=== PATIENT | male | born 1975 | race Caucasian/White ===

== ENCOUNTER 2019-12-13 13:57 | Outpatient (CLI) | payer BC, SELFPAY ==
--- NOTE | 2019-12-13 14:04 | XRR_ITS ---
PROCEDURE INFORMATION: Exam: XR Lumbosacral Spine, 2 or 3 Views Exam date and time: 12/13/2019 2:05 PM Age: 43 years old Clinical indication: Low back pain; Prior surgery; Surgery date: 6+ months; Additional info: Chronic low back pain TECHNIQUE: Imaging protocol: XR of the lumbosacral spine, 2 or 3 views. COMPARISON: MRI Lumbar Spine w/o [id number] 09/09/2014 8:09 AM FINDINGS: Vertebrae: There is mild osteoarthritis with narrowing of the intervertebral disc spaces several levels and bone spurs. No acute fracture. Normal alignment. Soft tissues: Normal. XR/XR lumbar spine 2-3V* [id number] IMPRESSION: Unremarkable radiograph.
== END 2019-12-13 13:58 | disposition home or self-care (01) ==
LOC: RAD 13:59
PROVIDERS: Family Provider Family Medicine; PCP Family Medicine; Visit Provider Family Medicine
DX: M54.5 Low back pain (principal); G89.29 Other chronic pain
CPT/HCPCS: 72100; 80053

== ENCOUNTER → 2021-09-28 11:33 | Outpatient (BNVA) | payer BC, SELFPAY | PROVIDERS: Family Provider Family Medicine; PCP Family Medicine; Visit Provider Nurse Practitioner Family | DX: Z20.822 Contact with and (suspected) exposure to COVID-19 (principal) | CPT/HCPCS: 87426; 87635 ==

== ENCOUNTER 2022-02-27 10:40 | Emergency (ER) | payer BC, SELFPAY ==
[2022-02-27 11:27] VITALS: BP 170/94; PULSE 73; RESP 15; TEMP 36.3; O2SAT 97; BMI 26.9
--- NOTE | 2022-02-27 11:34 | W.ED.NAVMDI ---
HPI - Nausea/Vomiting/Diarrhea General: Chief complaint: Nausea/Vomiting/Diarrhea Stated complaint: Throwing up, cant keep anything down Time Seen by Provider: 02/27/22 11:34 History of Present Illness: Mr. Solomon is a 46-year-old gentleman with significant past medical history of stomach ulcers who presents to the emergency department due to nausea vomiting. He reports symptom onset 2 days ago was subacute. He underwent tooth extraction Friday afternoon however no inhaled anesthetic or parent Sumanth anesthetic was given. That evening he developed multiple episodes of nausea and vomiting. He only endorses mild abdominal cramping with this and denies changes in stool though has had decreased urine output secondary to poor p.o. intake. Since that time he endorses watery vomit at least 3 times per hour. Intensity symptoms is moderate to severe. Course has persisted. No other specific changes in health, exacerbating, or alleviating factors identified. Onset (ago): day(s) Description of vomiting: watery Associated nausea: Yes Location of pain: Diffuse Severity: mild Quality: cramping Exacerbating factors: eating Associated symtoms: Reports nausea Review of Systems General: Reports: 10 or more systems reviewed and unremarkable except in HPI and below GI: Reports: nausea PFSH ED PFSH: Medical History Chronic GERD Chronic low back pain Elevated LFTs Surgical History History of back surgery S/P appendectomy Family History Other CAD (coronary artery disease) Diabetes Social History Smoking and tobacco status: never smoked Alcohol intake: current Alcohol intake frequency: few times a month Physical Exam Const: COMMON NORMALS: alert GENERAL APPEARANCE: cooperative, well developed and ill appearing (Mildly) HENMT: COMMON NORMALS: normocephalic and atraumatic HEAD & SCALP: normocephalic and atraumatic Eye: COMMON NORMALS: conjunctivae normal CONJUNCTIVA: Yes conjunctivae normal SCLERA: sclerae normal Neck/C-Spine: COMMON NORMALS: supple GENERAL: Yes trachea midline Resp: COMMON NORMALS: clear to auscultation bilaterally EFFORT & INSPECTION: Yes able to speak in complete sentences AUSCULTATION: clear to auscultation bilaterally Cardio: COMMON NORMALS: regular rate and regular rhythm RATE: regular rate RHYTHM: regular rhythm GI: COMMON NORMALS: Soft to palpation PALPATION: Yes Soft to palpation and No Tenderness to palpation present (GI) PERCUSSION: normal to percussion Extremity: GENERAL: Yes normal exam except as noted and No edema Neuro: COMMON NORMALS: moves all extremities SENSORIUM/ORIENTATION: Yes alert and No Orientation impaired Psych: COMMON NORMALS: mental status grossly normal and Normal thought process present THOUGHT PROCESS: Normal thought process present Course ED course: - Patient was seen and evaluated by me at bedside - Patient placed on cardiac monitors, IV access obtained - Initial evaluation notable for exam as above. Actively vomiting. - Labs personally interpreted by me - Fluids and symptom treatment ordered - Labs notable for mild leukocytosis. Metabolic panel consistent with dehydration. Potassium replenishment ordered. There is transaminitis and mild elevation of T bili however no right upper quadrant tenderness or history of biliary colic. Patient does endorse alcohol use which likely explains findings. - Imaging notable for no acute finding to explain symptoms. There is hepatomegaly with diffuse fatty infiltration. - Patient counseled on findings and alcohol use. - Upon serial reexamination after treatment the patient was improved - Based on patient history, evaluation, and testing as interpreted the most likely cause of the patient's condition is unspecified nausea vomiting resulting in dehydration and hypokalemia that was improved with treatment - The results of ED evaluation were discussed with the patient including prescriptions and/or symptomatic cares (if applicable) including appropriate and responsible use, followup plan, and return precautions. The patient verbalized understanding and felt safe for discharge. - Patient discharged in satisfactory condition. Note: Click bubbles or prepopulated catherine in note writing are used for assistance with data collection and billing and are inherently more limited than narrative and other text portions of this note. Please use narrative for additional clinical history and defer to narrative/free test for any case of contradictory information. If information appears in only free text or click bubble it should be considered present or absent as reported. Please contact note sheet writer for clarifications of clinical information or contradictory information. MDM is a brief summary, contradictory or erroneous seeming information should be clarified and full note should be reviewed. Vital Signs: Vital signs: Vital Signs Temperature 97.4 F L 02/27/22 11:27 Pulse Rate 82 02/27/22 16:39 Respiratory Rate 20 H 02/27/22 16:39 Blood Pressure 160/99 02/27/22 16:39 Pulse Oximetry 99 02/27/22 16:39 MDM - Nausea/Vomiting/Diarrhea Medical Decision Making 46-year-old gentleman presenting with nausea and vomiting. Labs consistent with mild dehydration and symptoms improved with treatment. CT without obvious cause of patient's symptoms. Satisfactory for outpatient management. Medical Records I reviewed the patient's medical records. Lab Data I reviewed the patient's lab results. : 02/27/22 12:30 02/27/22 12:30 Radiology Impressions Abdomen/Pelvis CT 02/27/22 13:01 IMPRESSION: 1. No acute findings in the abdomen or pelvis. 2. Hepatomegaly with diffuse fatty infiltration. 3. Sigmoid diverticulosis. No evidence of acute diverticulitis. 4. Small fat-containing umbilical hernia. 5. Prior appendectomy. Laboratory Results WBC 10.8 10^3/uL (4.0-10.0) H 02/27/22 12:30 RBC 4.81 10^6/uL (4.1-5.3) 02/27/22 12:30 Hgb 15.3 g/dL (11.7-16.6) 02/27/22 12:30 Hct 44.5 % (42.0-52.0) 02/27/22 12:30 MCV 92.5 fl (80-94) 02/27/22 12:30 MCH 31.8 pg (28.0-34.0) 02/27/22 12:30 MCHC 34.4 g/dL (30.0-36.0) 02/27/22 12:30 RDW 12.0 % (12.1-15.1) L 02/27/22 12:30 Plt Count 212 10^3/cmm (130-400) 02/27/22 12:30 MPV 10.1 fL (7.4-10.4) 02/27/22 12:30 Neut % (Auto) 81.5 % 02/27/22 12:30 Lymph % (Auto) 6.5 % 02/27/22 12:30 [place] % (Auto) 11.2 % 02/27/22 12:30 Eos % (Auto) 0.0 % 02/27/22 12:30 Baso % (Auto) 0.2 % 02/27/22 12:30 Neut # (Auto) 8.78 10^3/uL (1.8-7.7) H 02/27/22 12:30 Lymph # (Auto) 0.7 10^3/uL (0.8-4.8) L 02/27/22 12:30 [place] # (Auto) 1.2 10^3/uL (0.2-0.9) H 02/27/22 12:30 Eos # (Auto) 0.0 10^3/uL (0.0-0.8) 02/27/22 12:30 Baso # (Auto) 0.0 10^3/uL (0.0-0.1) 02/27/22 12:30 Nucleated RBC % (auto) 0 % 02/27/22 12:30 Nucleated RBCs # 0.0 /100WBC 02/27/22 12:30 Sodium 136 mmol/L (136-145) 02/27/22 12:30 Potassium 3.3 mmol/L (3.5-5.1) L 02/27/22 12:30 Chloride 88 mmol/L (98-107) L 02/27/22 12:30 Carbon Dioxide 28 mmol/L (22-29) 02/27/22 12:30 Anion Gap 23.3 (5-19) H 02/27/22 12:30 BUN 16 mg/dL (6-20) 02/27/22 12:30 Creatinine 0.7 mg/dL (0.7-1.2) 02/27/22 12:30 GFR Calculation 122.5 mL/min (90-130) 02/27/22 12:30 Glucose 115 mg/dL (65-115) 02/27/22 12:30 Calculated Osmolality 284 mOsm/kg (285-295) L 02/27/22 12:30 Calcium 9.6 mg/dL (8.5-10.5) 02/27/22 12:30 Total Bilirubin 1.4 mg/dL (0.15-1.2) H 02/27/22 12:30 AST 105 U/L (0-40) H 02/27/22 12:30 ALT 128 U/L (0-41) H 02/27/22 12:30 Alkaline Phosphatase 68 IU/L (40-130) 02/27/22 12:30 Total Protein 7.1 g/dL (6.6-8.7) 02/27/22 12:30 Albumin 4.9 g/dL (3.5-5.2) 02/27/22 12:30 Globulin 2.2 g/dL (1.3-4.6) 02/27/22 12:30 Lipase 49 U/L (13-60) 02/27/22 12:30 Urine Color [place] (Yellow) 02/27/22 12:30 Urine Appearance Clear (CLEAR) 02/27/22 12:30 Urine pH 5 (5-7) 02/27/22 12:30 Ur Specific [place] 1.020 (1.005-1.030) 02/27/22 12:30 Urine Protein 3+ (Negative) H 02/27/22 12:30 Urine Glucose (UA) Norm (Normal) 02/27/22 12:30 Urine Ketones 3+ (Negative) H 02/27/22 12:30 Urine Blood Neg (Negative) 02/27/22 12:30 Urine Nitrate Negative (Negative) 02/27/22 12:30 Urine Bilirubin 1+ (Negative) H 02/27/22 12:30 Urine Urobilinogen 1 mg/dL (Negative) H 02/27/22 12:30 Ur Leukocyte Esterase Trace (Negative) H 02/27/22 12:30 Urine RBC 0-4 /hpf (0-2) H 02/27/22 12:30 Urine WBC 0-4 /hpf (0-5) H 02/27/22 12:30 Ur Squamous Epith Cells 0-4 /hpf (0-5) H 02/27/22 12:30 Amorphous Sediment Not Reportable 02/27/22 12:30 Urine Bacteria Trace /hpf (NONE) 02/27/22 12:30 Urine Mucus 3+ /hpf 02/27/22 12:30 Discharge Plan Discharge Patient Disposition: Home Clinical Impression: Elevated LFTs, Dehydration, Nausea & vomiting, Hypokalemia, Hepatomegaly, Alcohol induced fatty liver Condition: Stable Prescriptions: New ondansetron 4 mg tablet,disintegrating 4 mg PO Q8H PRN (Reason: nausea and vomiting) Qty: 15 0RF Protonix 40 mg tablet,delayed release (DR/EC) 40 mg PO BID 10 Days Qty: 20 0RF No Action ketorolac 10 mg tablet 10 mg PO TID PRN (Reason: pain) 5 Days Qty: 15 0RF amoxicillin-pot clavulanate [Augmentin] 875-125 mg tablet 1 tab PO Q12H 10 Days Qty: 20 0RF amoxicillin 500 mg capsule 500 mg PO TID 0RF Rx Instructions: till gone hydrocodone-acetaminophen 5-325 mg tablet 1 tab PO Q4H PRN (Reason: Pain) 0RF Discharge Orders: Discharge ED (Routine); Ordered 02/27/22 Ordered By: Johnathon Jaime Referrals: Neeta Richmond MD [Staff Physician] - Sofya Coleman DO [Primary Care Provider] - Discharge Diet: Advance as tolerated and Clear Liquid Discharge Activity: Increase activity as tolerated Patient Instructions: Dehydration (ED), Acute Nausea and Vomiting (ED) Activity Restrictions/Additional Instructions: Thank you for visiting the emergency department. You were seen and evaluated for vomiting. The exact cause of your symptoms is unclear. You were found to be dehydrated and we are pleased that you improved with treatment. Please establish with a primary care provider. Please return to the emergency department for worsening symptoms or anything else that you are concerned about and feel needs emergency department evaluation. Coding Level of Care Code ED Public Health Inspector for Yany Espinosa Exam Comprehensive
[2022-02-27] MEDS: sodium chloride 0.9% 1,000 ML 999 ML IV ×2 (12:28→13:32)
[2022-02-27] MEDS: ondansetron 2 mg/ML SDV 2 mL 4 MG IVP (12:28)
[2022-02-27 12:36] LABS: Basophils % 0.2 %; Hematocrit 44.5 % (42.0-52.0); Hemoglobin 15.3 g/dL (11.7-16.6); Lymphocytes # 0.7 10^3/uL (0.8-4.8); Lymphocytes % 6.5 %; Mean Corpuscular HGB Conc 34.4 g/dL (30.0-36.0); Mean Corpuscular Hemoglobin 31.8 pg (28.0-34.0); Mean Corpuscular Volume 92.5 fl (80-94); Mean Platelet Volume 10.1 fL (7.4-10.4); Monocytes # 1.2 10^3/uL (0.2-0.9); Monocytes % 11.2 %; Neutrophils # 8.78 10^3/uL (1.8-7.7); Neutrophils % 81.5 %; Nucleated Red Blood Cells % 0 %; Platelet Count 212 10^3/cmm (130-400); Red Blood Count 4.81 10^6/uL (4.1-5.3); White Blood Count 10.8 10^3/uL (4.0-10.0)
[2022-02-27 12:57] LABS: Alanine Aminotransferase 128 U/L (0-41); Albumin Level 4.9 g/dL (3.5-5.2); Alkaline Phosphatase 68 IU/L (40-130); Anion Gap 23.3 (5-19); Aspartate Amino Transferase 105 U/L (0-40); Blood Urea Nitrogen 16 mg/dL (6-20); Calcium 9.6 mg/dL (8.5-10.5); Carbon Dioxide 28 mmol/L (22-29); Chloride 88 mmol/L (98-107); Globulin 2.2 g/dL (1.3-4.6); Glomerular Filtration Rate 122.5 mL/min (90-130); Glucose 115 mg/dL (65-115); Lipase 49 U/L (13-60); Osmolality Calculated 284 mOsm/kg (285-295); Potassium 3.3 mmol/L (3.5-5.1); Sodium 136 mmol/L (136-145); Total Bilirubin 1.4 mg/dL (0.15-1.2); Total Protein 7.1 g/dL (6.6-8.7)
--- NOTE | 2022-02-27 13:01 | CT_ITS ---
WS: [id number] CT ABDOMEN PELVIS TECHNIQUE: Contrast-enhanced CT of the abdomen and pelvis with coronal and sagittal reformatted image s. CLINICAL INFORMATION: n/v COMPARISON: DLP: 1652.[address] scans at [facility] use at least one of these dose optimization techniques: automated e xposure control; mA and/or kV adjustment per patient size (includes targeted exams where dose is matc hed to clinical indication); or iterative reconstruction. FINDINGS: Hepatomegaly with Diffuse fatty infiltration of the liver. Normal portal vein and splenic vein. Alia l spleen. Small esophageal hiatal hernia. Lung bases are well aerated. Normal spleen. Adrenal glands are normal. Normal renal parenchymal enhancement. No hydronephrosis. Normal caliber abdominal aorta. Tiny fat-containing umbilical hernia. Sigmoid diverticulosis. No evidence of acute diverticulitis. No evidence of high-grade small or large bowel obstruction. Prior appendectomy. No free fluid in the abdomen or pelvis. No abdominal or pelvi c lymphadenopathy.40 CT/CT abdomen pelvis w con* [id number] IMPRESSION: 1. No acute findings in the abdomen or pelvis. 2. Hepatomegaly with diffuse fatty infiltration. 3. Sigmoid diverticulosis. No evidence of acute diverticulitis. 4. Small fat-containing umbilical hernia. 5. Prior appendectomy.
[2022-02-27 13:03] LABS: Add Urine Microscopic? YES; Bilirubin Urine 1+ (Negative); Blood Urine Neg (Negative); Glucose Urine UA Norm (Normal); Ketones Urine 3+ (Negative); Leukocyte Esterase Urine Trace (Negative); Nitrate Urine Negative (Negative); Protein Urine 3+ (Negative); Urine Appearance Clear (CLEAR); Urine Color Amber (Yellow); Urobilinogen Urine 1 mg/dL (Negative); pH Urine 5 (5-7)
[2022-02-27 13:04] LABS: Add Urine Culture? No; Bacteria Urine TRACE /hpf; Mucus Urine 3+ /hpf; RBC Urine 0-4 /hpf (0-2); Squamous Epithelial Cell Urine 0-4 /hpf (0-5); WBC Urine 0-4 /hpf (0-5)
[2022-02-27] MEDS: iohexol 350 mg/mL 100 mL Btl IV (13:19)
[2022-02-27] MEDS: potassium chloride ER 20 mEq Tablet 40 MEQ PO (13:28)
[2022-02-27 13:32] VITALS: BP 189/100; PULSE 63; RESP 20; O2SAT 99
[2022-02-27] MEDS: metoclopramide 5 mg/mL SDV 2 mL 10 MG IVP (15:34)
[2022-02-27 15:47] VITALS: BP 177/99; PULSE 77; RESP 18; O2SAT 98
[2022-02-27 16:39] VITALS: BP 160/99; PULSE 82; RESP 20; O2SAT 99
== END 2022-02-27 16:40 | disposition home or self-care (01) ==
PROVIDERS: Emergency Provider Emergency Medicine; PCP Family Medicine
DX: E86.0 Dehydration (principal); R11.2 Nausea with vomiting, unspecified; E87.6 Hypokalemia; R16.0 Hepatomegaly, not elsewhere classified; K70.0 Alcoholic fatty liver; R79.89 Other specified abnormal findings of blood chemistry; K21.9 Gastro-esophageal reflux disease without esophagitis
CPT/HCPCS: 74177; 80053; 81001; 83690; 85025; 96361; 96374; 96375; 99284; J2405; J2765; J7030; Q9967

== ENCOUNTER 2022-12-16 18:41 | Emergency (ER) | payer OTHER, SELFPAY ==
[2022-12-16 18:46] VITALS: BP 157/95; PULSE 96; RESP 15; O2SAT 95
--- NOTE | 2022-12-16 18:46 | XRR_ITS ---
PROCEDURE INFORMATION: Exam: XR Chest Exam date and time: 12/16/2022 6:48 PM Age: 46 years old Clinical indication: Other: Passed out; Additional info: Seizure TECHNIQUE: Imaging protocol: Radiologic exam of the chest. Views: 1 view. COMPARISON: CT abdomen pelvis w con* [id number] 02/27/2022 1:21 PM FINDINGS: Lungs: Unremarkable. No consolidation. Pulmonary vascularity is within normal limits. There is a calcified granuloma right upper lobe. Pleural spaces: Unremarkable. No pleural effusion. No pneumothorax. Heart/Mediastinum: Unremarkable. No cardiomegaly. Bones/joints: No acute abnormality. XR/XR chest 1V portable [id number] IMPRESSION: No acute findings.
--- NOTE | 2022-12-16 18:46 | CTR_ITS ---
PROCEDURE INFORMATION: Exam: CT Head Without Contrast Exam date and time: 12/16/2022 7:12 PM Age: 46 years old Clinical indication: Condition or disease; Convulsions or seizures; Unspecified; Additional info: Seizure TECHNIQUE: Imaging protocol: Computed tomography of the head without contrast. Radiation optimization: All CT scans at this facility use at least one of these dose optimization techniques: automated exposure control; mA and/or kV adjustment per patient size (includes targeted exams where dose is matched to clinical indication); or iterative reconstruction. COMPARISON: No relevant prior studies available. RADIATION DOSE METRICS: Total DLP (mGy-cm): 1144.08 FINDINGS: Brain: Normal. No hemorrhage. Unremarkable white matter. No mass effect. Cerebral ventricles: No ventriculomegaly. Paranasal sinuses: Visualized sinuses are unremarkable. No fluid levels. Mastoid air cells: Visualized mastoid air cells are well aerated. Bones/joints: Unremarkable. No acute fracture. Soft tissues: Unremarkable. CT/CT head wo con* [id number] IMPRESSION: No acute intracranial abnormality.
--- NOTE | 2022-12-16 18:55 | W.ED.SEIZURE ---
HPI - Seizure General: Chief Complaint: Seizure Stated Complaint: SEIZURE Time Seen by Provider: 12/16/22 18:42 Source: patient and EMS Mode of arrival: EMS Limitations: no limitations History of Present Illness: HPI Narrative: 46-year-old male has a history of alcoholism states he has had a drink in 2 days today and had a seizure patient states he has not been feeling well as well since he has not had a drink he has some postictal so full history is difficult. Denies any known head injury. Associated symptoms: Deny chest pain, chills or fever(s) Review of Systems Const: Denies: fever(s), chills, body aches or change in appetite Eyes: Denies: blurry vision or eye discomfort ENMT: Denies: throat pain or dental pain Card: Denies: chest pain Resp: Denies: dyspnea GI: Denies: abdominal pain, nausea, vomiting or diarrhea : Denies: dysuria Musc: Denies: neck pain or back pain Skin/Breast: Denies: rash Neuro: Reports: seizure-like activity Psych: Denies: depression Jonathan/Lymph: Denies: easy bruising All/Imm: Denies: urticaria PFSH ED PFSH: Medical History Chronic GERD Chronic low back pain Elevated LFTs Surgical History History of back surgery S/P appendectomy Family History Other CAD (coronary artery disease) Diabetes Social History Smoking and tobacco status: never smoked Alcohol intake: current Alcohol intake frequency: few times a month Physical Exam Const: COMMON NORMALS: patient oriented x3 HENMT: COMMON NORMALS: normocephalic and atraumatic HEAD & SCALP: normocephalic and atraumatic Eye: COMMON NORMALS: Equal, round and reactive pupils present and EOMs intact bilaterally PUPIL: Yes Equal, round and reactive pupils present Neck/C-Spine: COMMON NORMALS: full ROM and supple Chest: COMMONS NORMALS: normal inspection of the chest and normal palpation of entire chest wall Resp: COMMON NORMALS: normal respiratory effort, No retractions, No use of accessory muscles and clear to auscultation bilaterally AUSCULTATION: clear to auscultation bilaterally Cardio: COMMON NORMALS: regular rate, regular rhythm and No murmurs present (Cardio) RATE: regular rate RHYTHM: regular rhythm GI: COMMON NORMALS: Normal to inspection, nondistended, normoactive bowel sounds present, Soft to palpation, non-tender and no masses PALPATION: Yes Soft to palpation Extremity: COMMON NORMALS: normal to inspection and full ROM Neuro: COMMON NORMALS: patient oriented x3, moves all extremities and no focal motor deficits Psych: COMMON NORMALS: mental status grossly normal, Normal thought process present and cooperative THOUGHT PROCESS: Normal thought process present Skin: COMMON NORMALS: no rashes or lesions noted and no wounds GENERAL SKIN EXAM: no rashes or lesions noted Course Vital Signs: Vital signs: Vital Signs Pulse Rate 71 12/16/22 21:50 Respiratory Rate 18 12/16/22 21:50 Blood Pressure 146/97 12/16/22 21:50 Pulse Oximetry 96 12/16/22 21:50 Oxygen Delivery Me thod 12/16/22 21:50 MDM - Seizure MDM Narrative Medical decision making narrative: Patient presents after a seizure likely a withdrawal seizure he is also hypokalemic and has an anion gap here when spoke to patient he states that he has to go home right now he states that he works tomorrow and cannot miss work informed him his potassium is very low I am concerned about his withdrawal seizures along with his anion gap and would strongly recommend admission he is able answer all my questions appropriately he has medical decision-making capacity he understands the risks of not staying and decided to sign out AGAINST MEDICAL ADVICE I did write him potassium supplements inform if he worsens or changes mind he is to return he understands agrees to plan. Lab Data 12/16/22 18:31 12/16/22 18:31 Labs: Radiology Impressions Chest X-Ray 12/16/22 18:46 IMPRESSION: No acute findings. Head CT 12/16/22 18:46 IMPRESSION: No acute intracranial abnormality. Laboratory Results WBC 14.0 10^3/uL (4.0-10.0) H 12/16/22 18:31 RBC 5.03 10^6/uL (4.1-5.3) 12/16/22 18:31 Hgb 16.4 g/dL (11.7-16.6) 12/16/22 18: Hct 48.0 % (42.0-52.0) 12/16/22 18: MCV 95.4 fl (80-94) H 12/16/22 18: MCH 32.6 pg (28.0-34.0) 12/16/22 18: MCHC 34.2 g/dL (30.0-36.0) 12/16/22: RDW 11.3 % (12.1-15.1) L 12/16/22 18: Plt Count 233 10^3/cmm (130-400) 12/16/22 18: MPV 10.7 fL (7.4-10.4) H 12/16/22 18: Neut % (Auto) 67.5 % 12/16/22: Lymph % (Auto) 19.4 % 12/16/22 18: [place] % (Auto) 12.0 % 12/16/22 18: Eos % (Auto) 0.3 % 12/16/22 18: Baso % (Auto) 0.2 % 12/16/22 18: Neut # (Auto) 9.42 10^3/uL (1.8-7.7) H 12/16/22 18: Lymph # (Auto) 2.7 10^3/uL (0.8-4.8) 12/16/22 18: [place] # (Auto) 1.7 10^3/uL (0.2-0.9) H 12/16/22: Eos # (Auto) 0.0 10^3/uL (0.0-0.8) 12/16/22: Baso # (Auto) 0.0 10^3/uL (0.0-0.1) 12/16/22: Nucleated RBC % (auto) 0 % 12/16/22: Nucleated RBCs # 0.0 /100WBC 12/16/22 18: Sodium 134 mmol/L (136-145) L 12/16/22: Potassium 2.3 mmol/L (3.5-5.1) L* 12/16/22:31 Chloride 83 mmol/L (98-107) L 12/16/22 18:31 Carbon Dioxide 22 mmol/L (22-29) 12/16/22 18:31 Anion Gap 31.3 (5-19) H 12/16/22 18:31 BUN 12 mg/dL (6-20) 12/16/22 18:31 Creatinine 1.2 mg/dL (0.7-1.2) 12/16/22 18:31 GFR Calculation 65.8 mL/min (90-130) L 12/16/22 18:31 Glucose 139 mg/dL (65-115) H 12/16/22 18:31 Calculated Osmolality 280 mOsm/kg (285-295) L 12/16/22 18:31 Lactate 2.2 mmol/L (0.5-2.2) 12/16/22 20:46 Calcium 9.4 mg/dL (8.5-10.5) 12/16/22 18:31 Magnesium 1.4 mg/dL (1.7-2.3) L 12/16/22 18:31 Total Bilirubin 1.8 mg/dL (0.15-1.2) H 12/16/22 18:31 AST 115 U/L (0-40) H 12/16/22 18:31 ALT 98 U/L (0-41) H 12/16/22 18:31 Alkaline Phosphatase 77 U/L (40-130) 12/16/22 18:31 Total Protein 7.4 g/dL (6.6-8.7) 12/16/22 18:31 Albumin 4.6 g/dL (3.5-5.2) 12/16/22 18:31 Globulin 2.8 g/dL (1.3-4.6) 12/16/22 18:31 Salicylates < 0.3 mg/dL (3-10) L 12/16/22 18:31 Urine Opiates Screen Negative ng/mL (Negative) 12/16/22 21:12 Acetaminophen < 5.0 ug/mL (10-30) L 12/16/22 18:31 Ur Barbiturates Screen Negative ng/mL (Negative) 12/16/22 21:12 Ur Phencyclidine Scrn Negative ng/mL (Negative) 12/16/22 21:12 Ur Amphetamines Screen Negative ng/mL (Negative) 12/16/22 21:12 U Benzodiazepines Scrn Positive ng/mL (Negative) H 12/16/22 21:12 Urine Cocaine Screen Negative ng/mL (Negative) 12/16/22 21:12 U Marijuana (THC) Screen Negative ng/mL (Negative) 12/16/22 21:12 Ethyl Alcohol < 10 mg/dL (0-10) 12/16/22 18:31 Serum Ketones Negative (Negative) 12/16/22 18:31 EKG Data EKG 1: Attestation: I personally reviewed and interpreted this EKG as follows: EKG interpretation date: 12/16/22 EKG interpretation time: 19:26 Interpretation: nsr hr [address] or t wave abnormalities qrs 125 qtc 458 Discharge Plan Discharge Patient Disposition: Left Against Medical Advice Clinical Impression: Generalized seizure, Hypokalemia Condition: Stable Prescriptions: New potassium chloride 40 mEq/15 mL liquid 40 meq PO BID 5 Days Qty: 150 0RF No Action ketorolac 10 mg tablet 10 mg PO TID PRN (Reason: pain) 5 Days Qty: 15 0RF amoxicillin-pot clavulanate [Augmentin] 875-125 mg tablet 1 tab PO Q12H 10 Days Qty: 20 0RF amoxicillin 500 mg capsule 500 mg PO TID Rx Instructions: till gone hydrocodone-acetaminophen 5-325 mg tablet 1 tab PO Q4H PRN (Reason: Pain) ondansetron 4 mg tablet,disintegrating 4 mg PO Q8H PRN (Reason: nausea and vomiting) Qty: 15 0RF Referrals: Sofya Coleman DO [Primary Care Provider] - 1-3 days Discharge Diet: Advance as tolerated Discharge Activity: Resume usual activity Patient Instructions: Hypokalemia (ED), Seizures Coding Level of Care Code ED Shell Assembler for Chg Fwd Exam Comprehensive
[2022-12-16 19:19] LABS: Basophils % 0.2 %; Eosinophils % 0.3 %; Hemoglobin 16.4 g/dL (11.7-16.6); Lymphocytes # 2.7 10^3/uL (0.8-4.8); Lymphocytes % 19.4 %; Mean Corpuscular HGB Conc 34.2 g/dL (30.0-36.0); Mean Corpuscular Hemoglobin 32.6 pg (28.0-34.0); Mean Corpuscular Volume 95.4 fl (80-94); Mean Platelet Volume 10.7 fL (7.4-10.4); Monocytes # 1.7 10^3/uL (0.2-0.9); Neutrophils # 9.42 10^3/uL (1.8-7.7); Neutrophils % 67.5 %; Nucleated Red Blood Cells % 0 %; Platelet Count 233 10^3/cmm (130-400); Red Blood Count 5.03 10^6/uL (4.1-5.3); Red Cell Distribution Width 11.3 % (12.1-15.1)
[2022-12-16] MEDS: sodium chloride 0.9% 1,000 ML 999 ML IV (19:19)
[2022-12-16] MEDS: LORazepam 2 mg/mL INJ 1 mL IV (19:19)
[2022-12-16 19:20] VITALS: BP 137/87; PULSE 74; O2SAT 93
--- NOTE | 2022-12-16 19:26 | ECG_ITS ---
[facility] Test Date: 2022-12-16 Pat Name: Chirag Solomon Department: Room: Gender: Male Yard Driver: : 1975 Requested By: Sandra Mendes Order Number: [id number] Conchis MD: Tyler Joseph M.D. Measurements Intervals Wirt Rate: 66 P: 50 NE: 202 QRS: 78 QRSD: 125 T: 39 QT: 445 QTc: 467 Interpretive Statements SINUS RHYTHM POSSIBLE RIGHT VENTRICULAR CONDUCTION DELAY [RSR (QR) IN V1/V2] NONSPECIFIC T-WAVE ABNORMALITY No previous ECG available for comparison Electronically Signed On 12-17-2022 7:39:48 EAR NOSE AND THROAT SPECIALIST by Tyler Joseph M.D. [id number]
[2022-12-16 19:43] LABS: Alanine Aminotransferase 98 U/L (0-41); Albumin Level 4.6 g/dL (3.5-5.2); Alkaline Phosphatase 77 U/L (40-130); Anion Gap 31.3 (5-19); Aspartate Amino Transferase 115 U/L (0-40); Blood Urea Nitrogen 12 mg/dL (6-20); Calcium 9.4 mg/dL (8.5-10.5); Carbon Dioxide 22 mmol/L (22-29); Chloride 83 mmol/L (98-107); Globulin 2.8 g/dL (1.3-4.6); Glomerular Filtration Rate 65.8 mL/min (90-130); Glucose 139 mg/dL (65-115); Osmolality Calculated 280 mOsm/kg (285-295); Sodium 134 mmol/L (136-145); Total Bilirubin 1.8 mg/dL (0.15-1.2); Total Protein 7.4 g/dL (6.6-8.7)
[2022-12-16 19:44] LABS: Acetaminophen < 5.0 ug/mL (10-30); Alcohol Level < 10 mg/dL (0-10); Potassium 2.3 mmol/L (3.5-5.1); Salicylate < 0.3 mg/dL (3-10)
[2022-12-16 19:58] LABS: Ketone (Acetest) Serum Negative (Negative)
[2022-12-16 20:09] LABS: Magnesium 1.4 mg/dL (1.7-2.3)
[2022-12-16] MEDS: potassium chloride ER 20 mEq Tablet 60 MEQ PO (20:23)
[2022-12-16 21:14] LABS: Lactate (Lactic Acid level) 2.2 mmol/L (0.5-2.2)
[2022-12-16 21:25] LABS: Amphetamines Screen Urine Negative (Negative); Barbiturates Screen Urine Negative (Negative); Benzodiazepines Screen Urine Positive (Negative); Cocaine Screen Urine Negative (Negative); Opiate Screen Urine Negative (Negative); PCP Screen Urine Negative (Negative); THC Screen Urine Negative (Negative)
[2022-12-16 21:50] VITALS: BP 146/97; PULSE 71; RESP 18; O2SAT 96
--- NOTE | 2022-12-17 05:41 | PC.NURSE ---
PT LEFT AMA SO FLUID WERE STOPPED AT 2150.
== END 2022-12-16 21:55 | disposition left against medical advice (07) ==
PROVIDERS: Emergency Provider Emergency Medicine; PCP Family Medicine
DX: G40.89 Other seizures (principal)
CPT/HCPCS: 70450; 71045; 80053; 80306; 80307; 82009; 83605; 83735; 85025; 93005; 96374; 96375; 99285; J2060; J3475; J7030